=== PATIENT | male | born 1955 | race Caucasian/White ===

== ENCOUNTER 2020-08-21 23:50 | Emergency (ER) | payer MEDICARE ==
[2020-08-22] MEDS ORDERED: Acetaminophen/HYDROcodone 325-5 MG Tab ONE (00:30)
--- NOTE | 2020-08-22 12:28 | ER ---
HISTORY OF PRESENT ILLNESS: A 65-year-old male who comes in with another man, part of their fishing group. The patient is up here on a fishing trip. He fell Thursday. He tells me it was while getting out of a top bunk in their sleeper fish house. He twisted his right ankle. He has been continuing to fish and tried to be active since then, but by tonight he decided he needed to come in. He states that he slipped one more time while going to the bathroom, which is an outhouse. They have to walk across ice to get to it. The patient states his ankle is mainly the area of discomfort as well as radiating slightly up into the lower leg. He denies any other injuries. PAST MEDICAL HISTORY: Hypertension. He takes amlodipine for this. OBJECTIVE: GENERAL APPEARANCE: The patient is awake and alert. No respiratory distress. VITAL SIGNS: Reviewed. Blood pressure 136/83. He is afebrile. O2 sats are 96% on room air, respirations 18. EXTREMITIES: Examining the right lower leg, ankle, and foot reveals moderate swelling of the ankle. A small amount of bruising on the lateral side. The swelling radiates down into the mid foot area and up into the lower leg. Examining the left ankle reveals there is an approximately 1+ edema here as well. The skin is intact on the right ankle and it is quite tender with even light touch, even though he rates his pain at 4/10. He has not been taking any pain medications. LABORATORY DATA AND X-RAY: X-ray was obtained showing a distal fibular fracture, a medial malleolar fracture, and joint displacement medially. DIAGNOSIS: Complex ankle fracture. TREATMENT PLAN: The patient has good pedal pulse and circulation is good to the distal foot. He was fitted with a walking CAM. He was also given crutches with instructions on how to use them by nursing staff. I will give him hydrocodone tablets to use for pain control. RICE therapy was discussed at length. The patient and his buddies are planning on traveling back to the [facility], which is where he lives, tomorrow. He is to call his clinic and set up an appointment time as soon as he gets home for a surgical consult. This will require surgery. The patient has no further questions. CRS/MODL /[id number]
--- NOTE | 2020-08-22 13:54 | CR ---
Date of Service: 08/22/20 Clinical Data: Ankle injury 2 days ago. RIGHT ANKLE: There is soft tissue swelling adjacent to the ankle joint. There is a bimalleolar fracture subluxation of the ankle joint. There is a displaced fracture through the distal fibular metaphysis. There is also a displaced oblique fracture through the medial malleolus of the distal tibia. The talus is subluxed laterally with respect to the distal tibia. No other acute abnormalities. [id number] [facility]
== END 2020-08-22 00:45 | disposition home or self-care (01) ==
LOC: LB.ED 23:50
DX: S82.831A Other fracture of upper and lower end of right fibula, initial encounter for closed fracture (principal); S82.841A Displaced bimalleolar fracture of right lower leg, initial encounter for closed fracture; X50.1XXA Overexertion from prolonged static or awkward postures, initial encounter
CPT/HCPCS: 73610-RT; 99283; A9270-GY